=== PATIENT | female | born 2000 | race African-American/Black ===

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

== ENCOUNTER 2021-06-08 05:37 | Emergency (ER) | payer MEDICAID ==
[~2021-06-08] VITALS: Ht 162.6 cm; Wt 55.0 kg
[2021-06-08 06:38] VITALS: BP 116/63
== END 2021-06-08 07:04 | disposition home or self-care (01) ==
LOC: ER 05:37
DX: R56.9 Unspecified convulsions (principal); J45.909 Unspecified asthma, uncomplicated
CPT/HCPCS: 99283